=== PATIENT | female | born 1985 | race Two or more races ===

== ENCOUNTER 2020-03-10 01:07 | Inpatient (IN) ==
[2020-03-10 02:00] LABS: Basophils % 0.2 % (0.0-0.8); Eosinophils # 0.1 10*3/uL (0.0-0.87); Eosinophils % 0.3 % (0.00-10.9); Hematocrit 37.9 VOL% (35.7-47.0); Hemoglobin 12.2 GM/DL (12.0-16.0); Immature Granulocytes % 0.9 %; Immature Granulocytes Absolute 0.13 #; Lymphocytes # 2.9 10*3/uL (1.4-4.0); Lymphocytes % 20.1 % (21.3-54.2); Mean Corpuscular HGB Conc 32.2 GM/DL (32-36); Mean Corpuscular Volume 90.2 FL (87-102); Mean Platelet Volume 11.5 FL (9.6-12.0); Monocytes % 4.2 % (1.7-12.7); Neutrophils % 74.3 % (38.7-73.9); Platelet Count 205 T/CUMM (130-400); Red Cell Distribution Width 14.2 % (9.3-17.3); White Blood Count 14.7 T/CUMM (4-12)
[2020-03-10] MEDS ORDERED: RHO(D) IMMUNE GLOBULIN 300 MCG SYRINGE IM STA (02:16)
[2020-03-10 02:24] LABS: Alanine Aminotransferase 26 U/L (13-56); Albumin 2.8 G/DL (3.4-5.0); Alkaline Phosphatase 73 U/L (45-117); Apearance,Urine Slightly Hazy (Clear); Aspartate Amino Transferase 21 U/L (0-37); Bilirubin,Total < 0.39 MG/DL (0.2-1.0); Bilirubin,Urine Negative (Negative); Blood Urea Nitrogen 11 MG/DL (7-18); Blood, Urine Large mg/dL (Negative); Calcium 9.8 MG/DL (8.5-10.1); Estimated Glom Filtration Rate 112 ML/MIN; Glucose 113 MG/DL (74-106); Glucose,Urine (UA) Negative (Negative); Ketones,Urine Negative (Negative); Nitrite,Urine Negative (Negative); Osmolality,Calculated 269.1 MOS/KG (273-304); Protein,Urine 100 MG/DL; RBC,Urine 2426 /HPF (0-4); Squamous Epithelial Cell,Urine Occasional /HPF (0-10); Total Protein 8.3 G/DL (6.4-8.3); Urine Color Red (Yellow); Urine Specific Gravity 1.008 (1.001-1.035); Urine Urobilinogen < 2.0 EU/DL (0.2-1.0)
[2020-03-10] MEDS ORDERED: cefTRIAXone 1,000 MG in SODIUM CHLORIDE 0.9% 100 ML IV STA (02:26)
[2020-03-10 03:18] VITALS: BP 114/58
[2020-03-10] MEDS ORDERED: ACETAMINOPHEN 325 MG TABLET PO PRN (03:42)
[2020-03-10] MEDS ORDERED: MORPHINE 4 MG/1 ML VIAL IV PRN (03:42)
[2020-03-10] MEDS ORDERED: SODIUM CHLORIDE 0.9% 1,000 ML IV SCH (03:42)
[2020-03-10] MEDS ORDERED: ONDANSETRON 4 MG/2 ML VIAL IV PRN (03:42)
[2020-03-10] MEDS ORDERED: LACTATED RINGERS 1,000 ML IV SCH (04:00)
[2020-03-10 04:06] LABS: Anisocytosis 1+; Platelet Estimate Normal
[2020-03-10 04:12] LABS: Basophils % 0.1 % (0.0-0.8); Eosinophils % 0.1 % (0.00-10.9); Hematocrit 32.2 VOL% (35.7-47.0); Hemoglobin 10.5 GM/DL (12.0-16.0); Immature Granulocytes % 0.8 %; Immature Granulocytes Absolute 0.12 #; Lymphocytes # 1.8 10*3/uL (1.4-4.0); Mean Corpuscular HGB Conc 32.6 GM/DL (32-36); Mean Corpuscular Volume 90.2 FL (87-102); Mean Platelet Volume 11.5 FL (9.6-12.0); Monocytes % 3.9 % (1.7-12.7); Neutrophils % 83.1 % (38.7-73.9); Platelet Count 207 T/CUMM (130-400); Red Blood Count 3.57 MC/CUMM (3.8-5.5); White Blood Count 15.2 T/CUMM (4-12)
[2020-03-10 04:27] LABS: Alanine Aminotransferase 22 U/L (13-56); Albumin 2.4 G/DL (3.4-5.0); Alkaline Phosphatase 63 U/L (45-117); Aspartate Amino Transferase 15 U/L (0-37); Bilirubin,Total < 0.39 MG/DL (0.2-1.0); Blood Urea Nitrogen 10 MG/DL (7-18); Calcium 9.3 MG/DL (8.5-10.1); Estimated Glom Filtration Rate 130 ML/MIN; Glucose 105 MG/DL (74-106); Osmolality,Calculated 271.8 MOS/KG (273-304); Total Protein 7.3 G/DL (6.4-8.3)
[2020-03-10 04:51] LABS: Anisocytosis 1+; Platelet Estimate Normal
[2020-03-10 04:55] LABS: INR 0.9; PT Patient Result 9.9 SECS (9.8-11.9)
[2020-03-10] MEDS ORDERED: miSOPROStoL 200 MCG TABLET PO ONE (06:33)
[2020-03-10] MEDS ORDERED: OXYTOCIN/LR 20 UNIT/1,000 ML BAG IV SCH (07:00)
[2020-03-10] MEDS ORDERED: miSOPROStoL 200 MCG TABLET ONE (08:27)
[2020-03-10] MEDS ORDERED: METHYLERGONOVINE 0.2 MG/1 ML AMP ONE (08:27)
[2020-03-10] MEDS ORDERED: CARBOPROST TROMETHAMINE 250 MCG/ML AMP IM ONE (08:27)
[2020-03-10] MEDS ORDERED: LIDOCAINE 1% 50 ML VIAL ONE (08:28)
[2020-03-10] MEDS ORDERED: MEPERIDINE 50 MG/1 ML VIAL ONE (10:11)
[2020-03-10] MEDS ORDERED: MEPERIDINE 50 MG/1 ML VIAL IV ONE (10:13)
[2020-03-10] MEDS ORDERED: FAMOTIDINE 20 MG/2 ML VIAL IV ONE (10:34)
[2020-03-10] MEDS ORDERED: CITRIC ACID/SODIUM CITRATE 30 ML UDCUP PO ONE (10:35)
[2020-03-10] MEDS ORDERED: OXYTOCIN/LR 30 UNIT/1,000 ML BAG IV ONE (11:10)
[2020-03-10] MEDS ORDERED: ceFAZolin 2,000 MG in PREMIX 1 EACH IV ONE (11:30)
[2020-03-10] MEDS ORDERED: MIDAZOLAM 2 MG/2 ML VIAL ONE (11:36)
[2020-03-10] MEDS ORDERED: propofoL 200 MG/20 ML VIAL IV ONE (11:36)
[2020-03-10] MEDS ORDERED: LIDOCAINE 2% 5 ML VIAL ONE (11:36)
[2020-03-10] MEDS ORDERED: ONDANSETRON 4 MG/2 ML VIAL ONE (11:37)
[2020-03-10 14:23] LABS: Hematocrit 29.3 VOL% (35.7-47.0); Hemoglobin 9.5 GM/DL (12.0-16.0)
[2020-03-11] MEDS ORDERED: cefTRIAXone 1,000 MG in SODIUM CHLORIDE 0.9% 100 ML IV SCH (03:00)
== END 2020-03-10 16:30 | disposition home or self-care (01) | DRG 770 ==
LOC: N.ED 01:07 → N.LD 02:28
PROVIDERS: ADMIT Obstetrics & Gynecology; ATTEND Obstetrics & Gynecology

== ENCOUNTER 2021-09-04 19:48 | Observation (INO) ==
[2021-09-04] MEDS ORDERED: SODIUM CHLORIDE 0.9% 500 ML IV STA (21:13)
[2021-09-04 22:49] LABS: Basophils % 0.1 % (0.0-0.8); Eosinophils % 0.1 % (0.00-10.9); Hematocrit 38.3 VOL% (35.7-47.0); Hemoglobin 12.8 GM/DL (12.0-16.0); Immature Granulocytes % 0.7 %; Lymphocytes # 2.2 10*3/uL (1.4-4.0); Lymphocytes % 15.3 % (21.3-54.2); Mean Corpuscular HGB Conc 33.4 GM/DL (32-36); Mean Corpuscular Volume 88.5 FL (87-102); Mean Platelet Volume 11.9 FL (9.6-12.0); Monocytes % 3.6 % (1.7-12.7); Neutrophils % 80.2 % (38.7-73.9); Platelet Count 223 T/CUMM (130-400); Red Blood Count 4.33 MC/CUMM (3.8-5.5); Red Cell Distribution Width 12.8 % (9.3-17.3); White Blood Count 14.5 T/CUMM (4-12)
[2021-09-04 23:01] LABS: Albumin 3.2 G/DL (3.4-5.0); Bilirubin,Total 0.9 MG/DL (0.20-1.00); Calcium 9.2 MG/DL (8.5-10.1); Osmolality,Calculated 273.8 MOS/KG (273-304); Potassium 3.4 MMOL/L (3.5-5.1); Total Protein 7.9 G/DL (6.4-8.2)
[2021-09-04] MEDS ORDERED: RHO(D) IMMUNE GLOBULIN 300 MCG SYRINGE IM STA (23:19)
[2021-09-04 23:26] LABS: Amorphous Crystals,Urine Occasional /HPF (Few); Bilirubin,Urine Negative (Negative); Blood, Urine Large mg/dL (Negative); Glucose,Urine (UA) Negative (Negative); Ketones,Urine Negative (Negative); Mucus,Urine Occasional /LPF (Occasional); Nitrite,Urine Negative (Negative); Protein,Urine 30 MG/DL; RBC,Urine 252 /HPF (0-4); Squamous Epithelial Cell,Urine Occasional /HPF (0-10); Urine Appearance Slightly Hazy (Clear); Urine Color Yellow (Yellow); Urine Specific Gravity 1.009 (1.001-1.035); Urine Urobilinogen < 2.0 EU/DL (0.2-1.0)
[2021-09-05] MEDS ORDERED: MAGNESIUM HYDROXIDE SUSP 30 ML UDCUP PO PRN (01:55)
[2021-09-05] MEDS ORDERED: SODIUM CHLORIDE 0.9% 1,000 ML IV SCH (01:55)
[2021-09-05] MEDS ORDERED: ONDANSETRON 4 MG/2 ML VIAL IV PRN (01:55)
[2021-09-05] MEDS ORDERED: ACETAMINOPHEN 325 MG TABLET PO PRN (01:55)
[2021-09-05] MEDS ORDERED: BISACODYL 10 MG SUPP RECTAL PRN (01:55)
[2021-09-05 05:24] LABS: Basophils % 0.2 % (0.0-0.8); Eosinophils % 0.2 % (0.00-10.9); Hematocrit 36.3 VOL% (35.7-47.0); Immature Granulocytes % 0.4 %; Immature Granulocytes Absolute 0.05 #; Lymphocytes # 3.1 10*3/uL (1.4-4.0); Lymphocytes % 24.4 % (21.3-54.2); Mean Corpuscular HGB Conc 33.1 GM/DL (32-36); Mean Platelet Volume 11.7 FL (9.6-12.0); Neutrophils % 68.8 % (38.7-73.9); Platelet Count 210 T/CUMM (130-400); Red Blood Count 4.08 MC/CUMM (3.8-5.5); Red Cell Distribution Width 12.9 % (9.3-17.3); White Blood Count 12.8 T/CUMM (4-12)
[2021-09-05] MEDS ORDERED: DOCUSATE SODIUM 100 MG CAPSULE PO SCH (09:00)
[2021-09-05 10:09] VITALS: BP 111/72
== END 2021-09-05 13:28 | disposition home or self-care (01) ==
LOC: N.EDINP 19:48 → N.ED 19:48 → N.EDINP 09-05 01:32 → N.OB 09-05 01:57
PROVIDERS: ADMIT Obstetrics & Gynecology; ATTEND Obstetrics & Gynecology

== ENCOUNTER 2022-01-21 13:32 | Inpatient (IN) ==
[2022-01-22] MEDS: DOCUSATE SODIUM 100 MG CAPSULE PO SCH ×2 (11:52→21:28)
[2022-01-22] MEDS: ASPIRIN CHEW 81 MG TABLET PO SCH (11:52)
[2022-01-23] MEDS: ASPIRIN CHEW 81 MG TABLET PO SCH (08:15)
[2022-01-23] MEDS: DOCUSATE SODIUM 100 MG CAPSULE PO SCH ×2 (08:15→21:43)
[2022-01-24] MEDS: DOCUSATE SODIUM 100 MG CAPSULE PO SCH ×2 (09:33→22:15)
[2022-01-24] MEDS: ASPIRIN CHEW 81 MG TABLET PO SCH (09:33)
[2022-01-25] MEDS: ASPIRIN CHEW 81 MG TABLET PO SCH (09:34)
[2022-01-25] MEDS: DOCUSATE SODIUM 100 MG CAPSULE PO SCH ×2 (09:34→21:32)
[2022-01-26 09:50] LABS: Basophils % 0.1 % (0.0-0.8); Eosinophils # 0.1 10*3/uL (0.0-0.87); Eosinophils % 0.3 % (0.00-10.9); Hematocrit 33.3 VOL% (35.7-47.0); Hemoglobin 10.8 GM/DL (12.0-16.0); Immature Granulocytes % 1.3 %; Immature Granulocytes Absolute 0.19 #; Lymphocytes # 2.2 10*3/uL (1.4-4.0); Lymphocytes % 15.1 % (21.3-54.2); Mean Corpuscular HGB Conc 32.4 GM/DL (32-36); Mean Corpuscular Volume 91.7 FL (87-102); Mean Platelet Volume 11.1 FL (9.6-12.0); Monocytes % 3.9 % (1.7-12.7); Neutrophils % 79.3 % (38.7-73.9); Platelet Count 214 T/CUMM (130-400); Red Blood Count 3.63 MC/CUMM (3.8-5.5); Red Cell Distribution Width 14.4 % (9.3-17.3); White Blood Count 14.8 T/CUMM (4-12)
[2022-01-26] MEDS: DOCUSATE SODIUM 100 MG CAPSULE PO SCH (21:19)
[2022-01-26] MEDS: ASPIRIN CHEW 81 MG TABLET PO SCH (21:42)
[2022-01-27] MEDS: ASPIRIN CHEW 81 MG TABLET PO SCH (09:15)
[2022-01-27] MEDS: DOCUSATE SODIUM 100 MG CAPSULE PO SCH ×3 (09:15→21:01)
[2022-01-28] MEDS: ASPIRIN CHEW 81 MG TABLET PO SCH (08:56)
[2022-01-28] MEDS: DOCUSATE SODIUM 100 MG CAPSULE PO SCH (08:58)
[2022-01-28 09:36] VITALS: BP 108/61
== END 2022-01-28 12:00 | disposition home or self-care (01) | DRG 831 ==
LOC: N.LDOUT 13:32 → N.LD 13:34 → N.OB 22:48
PROVIDERS: ADMIT Obstetrics & Gynecology; ATTEND Obstetrics & Gynecology

== ENCOUNTER 2022-02-04 08:59 | Inpatient (IN) ==
[2022-02-04] MEDS ORDERED: TRANEXAMIC ACID 1,000 MG in SODIUM CHLORIDE 0.9% 100 ML IV PRN (09:39)
[2022-02-04] MEDS ORDERED: FAMOTIDINE 20 MG/2 ML VIAL IV ONE (09:39)
[2022-02-04] MEDS ORDERED: CARBOPROST TROMETHAMINE 250 MCG/ML AMP IM PRN (09:39)
[2022-02-04] MEDS ORDERED: miSOPROStoL 200 MCG TABLET RECTAL PRN (09:39)
[2022-02-04] MEDS ORDERED: CITRIC ACID/SODIUM CITRATE 30 ML UDCUP PO ONE (09:39)
[2022-02-04] MEDS ORDERED: METHYLERGONOVINE 0.2 MG/1 ML AMP IM PRN (09:39)
[2022-02-04] MEDS ORDERED: LACTATED RINGERS 1,000 ML IV ONE ×2 (09:43→13:45)
[2022-02-04] MEDS ORDERED: LACTATED RINGERS 1,000 ML IV SCH ×3 (10:00→17:30)
[2022-02-04 10:10] LABS: Basophils % 0.1 % (0.0-0.8); Eosinophils % 0.2 % (0.00-10.9); Hematocrit 35.6 VOL% (35.7-47.0); Hemoglobin 11.7 GM/DL (12.0-16.0); Immature Granulocytes % 0.8 %; Immature Granulocytes Absolute 0.11 #; Lymphocytes # 2.5 10*3/uL (1.4-4.0); Lymphocytes % 17.8 % (21.3-54.2); Mean Corpuscular HGB Conc 32.9 GM/DL (32-36); Mean Corpuscular Volume 89.9 FL (87-102); Mean Platelet Volume 11.3 FL (9.6-12.0); Monocytes # 0.5 10*3/uL (0.11-0.8); Monocytes % 3.3 % (1.7-12.7); Neutrophils % 77.8 % (38.7-73.9); Platelet Count 226 T/CUMM (130-400); Red Blood Count 3.96 MC/CUMM (3.8-5.5); Red Cell Distribution Width 14.4 % (9.3-17.3); White Blood Count 14.2 T/CUMM (4-12)
[2022-02-04 10:41] LABS: Albumin 2.6 G/DL (3.4-5.0); Bilirubin,Total 0.4 MG/DL (0.20-1.00); Calcium 9.5 MG/DL (8.5-10.1); Osmolality,Calculated 273.7 MOS/KG (273-304); Potassium 3.5 MMOL/L (3.5-5.1); Total Protein 7.9 G/DL (6.4-8.2)
[2022-02-04 10:57] LABS: Rubella Antibody IgG Result Reactive (NonReactive)
[2022-02-04] MEDS ORDERED: ONDANSETRON 4 MG/2 ML VIAL ONE (11:28)
[2022-02-04] MEDS ORDERED: BUPIVACAINE MPF 0.5% 30 ML VIAL ONE (11:28)
[2022-02-04] MEDS ORDERED: buprenorphine HCL 0.3 MG/ML VIAL ONE (11:28)
[2022-02-04] MEDS ORDERED: OXYTOCIN/LR 30 UNIT/1,000 ML BAG IV ONE (12:00)
[2022-02-04] MEDS ORDERED: OXYTOCIN 10 UNIT/ML VIAL IM ONE (12:00)
[2022-02-04] MEDS ORDERED: ceFAZolin 2,000 MG/50 ML DUPLEX IV ONE (12:00)
[2022-02-04] MEDS ORDERED: PHENYLEPHRINE 1 MG/10 ML SYRINGE IV ONE (13:45)
[2022-02-04] MEDS ORDERED: DEXAMETHASONE 4 MG/1 ML VIAL ONE (14:03)
[2022-02-04] MEDS ORDERED: ACETAMINOPHEN INJ 1,000 MG/100 ML VIAL IV ONE (14:04)
[2022-02-04] MEDS ORDERED: KETOROLAC 30 MG/1 ML VIAL ONE (14:05)
[2022-02-04 14:28] LABS: Cord Arterial Blood HCO3 23.6 MMOL/L
[2022-02-04 14:31] LABS: Cord Venous Blood PCO2 38.1 MMHG; Cord Venous Blood PO2 36.7 MMHG
[2022-02-04 14:39] LABS: Bacteria,Urine Occasional /HPF (Few); Mucus,Urine Occasional /LPF (Occasional); RBC,Urine <1 /HPF (0-4); Squamous Epithelial Cell,Urine Occasional /HPF (0-10)
[2022-02-04 14:40] LABS: Bilirubin,Urine Negative (Negative); Blood, Urine Negative (Negative); Glucose,Urine (UA) Negative (Negative); Ketones,Urine 40 mg/dL (Negative); Nitrite,Urine Negative (Negative); Protein,Urine Trace mg/dL (Negative); Urine Appearance Clear (Clear); Urine Color Yellow (Yellow); Urine Urobilinogen 0.2 eU/dL (<2.0)
[2022-02-04] MEDS ORDERED: OXYTOCIN/LR 20 UNIT/1,000 ML BAG IV ONE ×2 (16:12→17:30)
[2022-02-04] MEDS ORDERED: ACETAMINOPHEN 325 MG TABLET PO PRN (16:59)
[2022-02-04] MEDS ORDERED: ONDANSETRON 4 MG/2 ML VIAL IV PRN (16:59)
[2022-02-04] MEDS ORDERED: RHO(D) IMMUNE GLOBULIN 300 MCG SYRINGE IM ONE (17:30)
[2022-02-04] MEDS ORDERED: KETOROLAC 30 MG/1 ML VIAL IV SCH (20:00)
[2022-02-04] MEDS ORDERED: ACETAMINOPHEN 500 MG TABLET PO SCH (20:00)
[2022-02-04] MEDS: KETOROLAC 30 MG/1 ML VIAL IV SCH (21:20)
[2022-02-04] MEDS: ACETAMINOPHEN 500 MG TABLET PO SCH (21:31)
[2022-02-04] MEDS: DOCUSATE SODIUM 100 MG CAPSULE PO SCH (21:31)
[2022-02-04 23:25] LABS: Basophils % 0.1 % (0.0-0.8); Hematocrit 30.8 VOL% (35.7-47.0); Hemoglobin 10.2 GM/DL (12.0-16.0); Immature Granulocytes % 0.9 %; Immature Granulocytes Absolute 0.15 #; Lymphocytes # 1.4 10*3/uL (1.4-4.0); Lymphocytes % 8.5 % (21.3-54.2); Mean Corpuscular HGB Conc 33.1 GM/DL (32-36); Mean Corpuscular Volume 89.3 FL (87-102); Mean Platelet Volume 11.5 FL (9.6-12.0); Monocytes # 0.4 10*3/uL (0.11-0.8); Monocytes % 2.4 % (1.7-12.7); Neutrophils % 88.1 % (38.7-73.9); Platelet Count 203 T/CUMM (130-400); Red Blood Count 3.45 MC/CUMM (3.8-5.5); Red Cell Distribution Width 13.9 % (9.3-17.3); White Blood Count 16.1 T/CUMM (4-12)
[2022-02-05] MEDS: KETOROLAC 30 MG/1 ML VIAL IV SCH ×2 (03:08→08:31)
[2022-02-05] MEDS ORDERED: ACETAMINOPHEN 325 MG TABLET PO PRN (03:18)
[2022-02-05] MEDS: ACETAMINOPHEN 500 MG TABLET PO SCH ×2 (04:54→09:00)
[2022-02-05 05:40] LABS: Basophils % 0.2 % (0.0-0.8); Eosinophils % 0.1 % (0.00-10.9); Hematocrit 30.8 VOL% (35.7-47.0); Hemoglobin 10.1 GM/DL (12.0-16.0); Immature Granulocytes % 0.8 %; Immature Granulocytes Absolute 0.11 #; Lymphocytes # 2.1 10*3/uL (1.4-4.0); Lymphocytes % 14.8 % (21.3-54.2); Mean Corpuscular HGB Conc 32.8 GM/DL (32-36); Mean Corpuscular Volume 90.9 FL (87-102); Mean Platelet Volume 11.6 FL (9.6-12.0); Monocytes # 0.7 10*3/uL (0.11-0.8); Monocytes % 4.8 % (1.7-12.7); Neutrophils % 79.3 % (38.7-73.9); Platelet Count 207 T/CUMM (130-400); Red Blood Count 3.39 MC/CUMM (3.8-5.5); Red Cell Distribution Width 14.1 % (9.3-17.3); White Blood Count 13.9 T/CUMM (4-12)
[2022-02-05] MEDS: MAGNESIUM HYDROXIDE SUSP 30 ML UDCUP PO PRN ×2 (08:29→20:46)
[2022-02-05] MEDS: METOCLOPRAMIDE 10 MG TABLET PO SCH ×3 (08:29→23:23)
[2022-02-05] MEDS: DOCUSATE SODIUM 100 MG CAPSULE PO SCH ×2 (08:29→20:46)
[2022-02-05] MEDS: MULTIVITAMIN (PRENATAL) TABLET PO SCH (08:30)
[2022-02-05] MEDS: SIMETHICONE CHEW 80 MG TABLET PO PRN (08:30)
[2022-02-05] MEDS ORDERED: RHO(D) IMMUNE GLOBULIN 300 MCG SYRINGE IM ONE (16:39)
[2022-02-05] MEDS: IBUPROFEN 800 MG TABLET PO PRN (20:46)
[2022-02-06] MEDS: SIMETHICONE CHEW 80 MG TABLET PO PRN (05:05)
[2022-02-06] MEDS: DOCUSATE SODIUM 100 MG CAPSULE PO SCH (08:41)
[2022-02-06] MEDS: MULTIVITAMIN (PRENATAL) TABLET PO SCH (08:41)
[2022-02-06] MEDS: IBUPROFEN 800 MG TABLET PO PRN (08:42)
[2022-02-06 11:25] VITALS: BP 101/57
== END 2022-02-06 12:45 | disposition home or self-care (01) | DRG 786 ==
LOC: N.LDOUT 08:59 → N.LD 09:00 → N.OB 17:39
PROVIDERS: ADMIT Obstetrics & Gynecology; ATTEND Obstetrics & Gynecology
PROC: LDCSECT (ICD-10-PCS; 2022-02-04 13:45)